=== PATIENT | female | born 1965 | race Caucasian/White ===

== ENCOUNTER → 2019-07-21 | Outpatient (CLI) | payer MEDICARE ==
[~2019-07-21] MED LIST: DOBUTamine DRIP for NUC MED 500 MG in DEXTROSE/WATER 1 250ML.BAG IV ONE
--- NOTE | 2019-07-21 11:51 | ECHOS ---
STRESS ECHOCARDIOGRAM DOBUTAMINE STRESS ECHO DATE OF SERVICE: 07/21/2019 INDICATIONS: Chest pain. MEDICATIONS: Atorvastatin, levothyroxine, sertraline, Advil, Fioricet, albuterol. BASELINE HEART RATE: 77 BASELINE BLOOD PRESSURE: 136/77 MAXIMUM HEART RATE: 142 MAXIMUM BLOOD PRESSURE: 146/69 85% MPHR: 140 100% MPHR: 165 METS: MAXIMUM STAGE REACHED: TOTAL EXERCISE TIME: CLINICAL INFORMATION: Baseline EKG shows sinus rhythm, normal axis, normal intervals. The patient was given intravenous dobutamine as per protocol for 12-1/2 minutes achieving 85% of predicted maximal heart rate without chest pain or diagnostic ST-segment depression. Baseline echo shows normal left ventricular size, wall motion and systolic function. Post dobutamine infusion, there is normal hyperdynamic response of all the segments of myocardium. CONCLUSIONS: 1. Negative stress test by EKG criteria. 2. Negative dobutamine echo. MMODL / IJN: [id number] /
== END | disposition home or self-care (01) ==
LOC: RADNMMAIN 09:28
PROVIDERS: ATTEND Family Medicine
DX: R07.9 Chest pain, unspecified (principal)
CPT/HCPCS: 93351; J1250

== ENCOUNTER → 2019-08-27 | Outpatient (CLI) | payer MEDICARE ==
--- NOTE | 2019-08-31 09:01 | MM ---
Reason for exam: screening (asymptomatic). History: Patient is postmenopausal. Physical Findings: A clinical breast exam by your physician is recommended on an annual basis and results should be correlated with mammographic findings. MG 3D Screening Mammo W/Cad Bilateral CC and MLO view(s) were taken. No prior studies available for comparison. The breast tissue is extremely dense which could obscure a lesion on mammography. There is no discrete abnormality. ASSESSMENT: Negative, BI-RAD 1 RECOMMENDATION: Routine screening mammogram of both breasts in 1 year.
== END | disposition home or self-care (01) ==
LOC: RADMAMWWP 07:01
PROVIDERS: ATTEND Family Medicine
DX: Z12.31 Encounter for screening mammogram for malignant neoplasm of breast (principal)
CPT/HCPCS: 77063; 77067

== ENCOUNTER → 2021-01-26 | Outpatient (CLI) | payer MEDICARE ==
--- NOTE | 2021-01-27 11:35 | MM ---
Reason for exam: screening (asymptomatic). Last mammogram was performed 1 year and 5 months ago. History: Patient is postmenopausal. Physical Findings: A clinical breast exam by your physician is recommended on an annual basis and results should be correlated with mammographic findings. MG 3D Screening Mammo W/Cad Bilateral CC and MLO view(s) were taken. Prior study comparison: August 27, 2019, bilateral MG 3d screening mammo w/cad. The breast tissue is heterogeneously dense. This may lower the sensitivity of mammography. There is no discrete abnormality. ASSESSMENT: Negative, BI-RAD 1 RECOMMENDATION: Routine screening mammogram of both breasts in 1 year.
== END | disposition home or self-care (01) ==
LOC: RADMAMWWP 07:30
PROVIDERS: ATTEND Family Medicine
DX: Z12.31 Encounter for screening mammogram for malignant neoplasm of breast (principal); Z78.0 Asymptomatic menopausal state
CPT/HCPCS: 77063; 77067

== ENCOUNTER → 2021-08-17 | Outpatient (CLI) | payer MEDICARE ==
--- NOTE | 2021-08-18 08:18 | CTL ---
EXAMINATION TYPE: CT Low Dose Lung DATE OF EXAM ORDERED: 08/17/2021 HISTORY: Long-term tobacco use. Lung cancer screening CT DLP: 1.[address] CTDI: 56.70 mGy Automated exposure control for dose reduction was used. SCREENING VISIT: Baseline COMPARISON: None TECHNIQUE: Low dose computed tomography scan was performed through the chest at 1 mm thick sections a nd reconstructed images in multiple planes at 1 mm and [address] DIAGNOSTIC QUALITY: Satisfactory FINDINGS: LUNG NODULES: Present, detailed below: There is 2.7 mm right middle lobe nodule axial image 147. LUNGS: COPD: Severity: Mild Fibrosis: Severity: Mild Right apical Lymph nodes: No greater than 1 cm Other findings: None RIGHT PLEURAL SPACE: Effusion: None Calcification: None Thickening: None Pneumothorax: None LEFT PLEURAL SPACE: Effusion: None Calcification: None Thickening: None Pneumothorax: None HEART: Heart Size: Normal Coronary Calcification: Minimal Pericardial Effusion: Normal OTHER FINDINGS: Upper abdomen: None Bony thorax: [id number] multilevel spurring. Slight underlying scoliotic curvature. Supraclavicular region: None Other: Symmetric prominent but subcentimeter bilateral axillary lymph nodes. IMPRESSION: Mild emphysematous change. No suspicious greater than [address] LUNG RAD AND CT CHEST RECOMMENDATION: Lung-Rad 2 Benign Appearance or Behavior: Continue annual sc reening with LDCT in 12 months. S Modifier (other clinically significant findings): None
== END | disposition home or self-care (01) ==
LOC: RADCTMAIN 16:42
PROVIDERS: ATTEND Family Medicine
DX: Z12.2 Encounter for screening for malignant neoplasm of respiratory organs (principal); J43.9 Emphysema, unspecified; Z87.891 Personal history of nicotine dependence
CPT/HCPCS: 71271

== ENCOUNTER 2021-11-21 10:02 | Inpatient (IN) | payer MEDICARE ==
[2021-11-21] MEDS ORDERED: IBUPROFEN 600 MG TAB PO STA (10:30)
[2021-11-21] MEDS ORDERED: ACETAMINOPHEN TAB 325 MG TAB PO STA (10:30)
[2021-11-21] MEDS ORDERED: ONDANSETRON 4 MG/2 ML VIAL IVP STA (10:30)
[2021-11-21] MEDS ORDERED: SODIUM CHLORIDE 0.9% 1,000 ML IV ONE (10:42)
[2021-11-21] MEDS ORDERED: SODIUM CHLORIDE 0.9% 500 ML 500 ML IV ONE (10:42)
--- NOTE | 2021-11-21 10:42 | ED ---
Fever HPI - General Chief Complaint: Fever Stated Complaint: Fever Time Seen by Provider: 11/21/21 10:10 Source: patient, RN notes reviewed Mode of arrival: ambulatory Limitations: no limitations - History of Present Illness Initial Comments: This a 56-year-old female presents emergency Department chief complaint of fever times one week. Patient states that she's not felt well since last week she did have covid and influenza testing which was negative. 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 Patient was sent in by PCP secondary to fever. Patient states that she's had some nausea no specific cough or cold-like symptoms. Patient states that she said no diarrhea no sick contacts. Patient had on-and-off illnesses the past. Patient denies ear pain sore throat no neck pain or neck stiffness. No urinary symptoms - Related Data Home Medications Medication Instructions Recorded Confirmed Atorvastatin [Lipitor] 20 mg PO DAILY 11/21/21 11/21/21 Ibuprofen/Diphenhydramine HCl 2 cap PO HS 11/21/21 11/21/21 [Advil Pm Liqui-Gels] Levothyroxine Sodium [Synthroid] 50 mcg PO DAILY 11/21/21 11/21/21 Sertraline [Zoloft] 150 mg PO DAILY 11/21/21 11/21/21 Allergies Allergy/AdvReac Type Severity Reaction Status Date / Time codeine AdvReac Intermediate Nausea & Verified 11/21/21 11:37 Vomiting hydrocodone [From Vicodin] AdvReac Intermediate Nausea & Verified 11/21/21 11:37 Vomiting meperidine [From Demerol] AdvReac Intermediate Nausea & Verified 11/21/21 11:37 Vomiting Review of Systems ROS Statement: Those systems with pertinent positive or pertinent negative responses have been documented in the HPI. ROS Other: All systems not noted in ROS Statement are negative. Past Medical History Past Medical History: No Reported History History of Any Multi-Drug Resistant Organisms: None Reported Past Surgical History: Appendectomy, Hernia Repair Additional Past Surgical History / Comment(s): spleenectomy. Past Psychological History: No Psychological Hx Reported Smoking Status: Current some day smoker Past Alcohol Use History: Occasional Past Drug Use History: Marijuana General Exam Limitations: no limitations General appearance: alert, in no apparent distress Head exam: Present: atraumatic, normocephalic, normal inspection Eye exam: Present: normal appearance, PERRL, EOMI. Absent: scleral icterus, conjunctival injection, periorbital swelling ENT exam: Present: normal exam, normal oropharynx, mucous membranes moist, TM's normal bilaterally Neck exam: Present: normal inspection, full ROM. Absent: tenderness, meningismus, lymphadenopathy Respiratory exam: Present: normal lung sounds bilaterally. Absent: respiratory distress, wheezes, rales, rhonchi, stridor Cardiovascular Exam: Present: normal rhythm, tachycardia, normal heart sounds. Absent: systolic murmur, diastolic murmur, rubs, gallop, clicks GI/Abdominal exam: Present: soft, normal bowel sounds. Absent: distended, tenderness, guarding, rebound, rigid Neurological exam: Present: alert, oriented X3 Skin exam: Present: warm, dry, intact, normal color. Absent: rash Course Vital Signs 11/21/21 10:02 Temperature 101.1 F H Pulse Rate 102 H Respiratory 18 Rate Blood Pressure 164/74 O2 Sat by Pulse 99 Oximetry Medical Decision Making - Medical Decision Making 56-year-old present for fever. Patient on a left-sided lobar pneumonia. Patient has significant leukocytosis and history of splenectomy. Patient was started on broad-spectrum antibiotics and will be admitted to the hospital for further monitoring, treatment. - Lab Data Result diagrams: 11/21/21 10:42 11/21/21 10:42 Lab Results 11/21/21 11/21/21 11/21/21 Range/Units 10:42 10:42 10:42 WBC 20.5 H (3.8-10.6) k/uL RBC 3.52 L (3.80-5.40) m/uL Hgb 12.0 (11.4-16.0) gm/dL Hct 35.6 (34.0-46.0) % MCV 101.0 H (80.0-100.0) fL MCH 34.2 (25.0-35.0) pg MCHC 33.8 (31.0-37.0) g/dL RDW 13.2 (11.5-15.5) % Plt Count 316 (150-450) k/uL MPV 8.5 Neutrophils % 86 % Lymphocytes % 10 % Monocytes % 2 % Eosinophils % 1 % Basophils % 0 % Neutrophils # 17.6 H (1.3-7.7) k/uL Lymphocytes # 2.0 (1.0-4.8) k/uL Monocytes # 0.5 (0-1.0) k/uL Eosinophils # 0.2 (0-0.7) k/uL Basophils # 0.1 (0-0.2) k/uL Sodium 128 L (137-145) mmol/L Potassium 3.5 (3.5-5.1) mmol/L Chloride 99 (98-107) mmol/L Carbon Dioxide 18 L (22-30) mmol/L Anion Gap 11 mmol/L BUN 6 L (7-17) mg/dL Creatinine 0.62 (0.52-1.04) mg/dL Est GFR (CKD-EPI)AfAm >90 (>60 ml/min/1.73 sqM) Est GFR (CKD-EPI)NonAf >90 (>60 ml/min/1.73 sqM) Glucose 177 H (74-99) mg/dL Plasma Lactic Acid Robert (0.7-2.0) mmol/L Calcium 8.7 (8.4-10.2) mg/dL Total Bilirubin 0.5 (0.2-1.3) mg/dL AST 39 H (14-36) U/L ALT 46 H (4-34) U/L Alkaline Phosphatase 90 (38-126) U/L Total Protein 6.8 (6.3-8.2) g/dL Albumin 3.6 (3.5-5.0) g/dL Influenza Type A (PCR) Not Detected (Not Detectd) Influenza Type B (PCR) Not Detected (Not Detectd) RSV (PCR) Not Detected (Not Detectd) SARS-CoV-2 (PCR) Not Detected (Not Detectd) 11/21/21 Range/Units 10:42 WBC (3.8-10.6) k/uL RBC (3.80-5.40) m/uL Hgb (11.4-16.0) gm/dL Hct (34.0-46.0) % MCV (80.0-100.0) fL MCH (25.0-35.0) pg MCHC (31.0-37.0) g/dL RDW (11.5-15.5) % Plt Count (150-450) k/uL MPV Neutrophils % % Lymphocytes % % Monocytes % % Eosinophils % % Basophils % % Neutrophils # (1.3-7.7) k/uL Lymphocytes # (1.0-4.8) k/uL Monocytes # (0-1.0) k/uL Eosinophils # (0-0.7) k/uL Basophils # (0-0.2) k/uL Sodium (137-145) mmol/L Potassium (3.5-5.1) mmol/L Chloride (98-107) mmol/L Carbon Dioxide (22-30) mmol/L Anion Gap mmol/L BUN (7-17) mg/dL Creatinine (0.52-1.04) mg/dL Est GFR (CKD-EPI)AfAm (>60 ml/min/1.73 sqM) Est GFR (CKD-EPI)NonAf (>60 ml/min/1.73 sqM) Glucose (74-99) mg/dL Plasma Lactic Acid Robert 1.8 (0.7-2.0) mmol/L Calcium (8.4-10.2) mg/dL Total Bilirubin (0.2-1.3) mg/dL AST (14-36) U/L ALT (4-34) U/L Alkaline Phosphatase (38-126) U/L Total Protein (6.3-8.2) g/dL Albumin (3.5-5.0) g/dL Influenza Type A (PCR) (Not Detectd) Influenza Type B (PCR) (Not Detectd) RSV (PCR) (Not Detectd) SARS-CoV-2 (PCR) (Not Detectd) Disposition Clinical Impression: Pneumonia, History of splenectomy, Leukocytosis Disposition: ADMITTED IP TO THIS HOSP Condition: Fair Referrals: Lion Guzman MD [Primary Care Provider] - 1-2 days
[2021-11-21 10:56] LABS: Basophils # (A) 0.1 k/uL (0-0.2); Basophils % (A) 0 %; Eosinophils # (A) 0.2 k/uL (0-0.7); Eosinophils % (A) 1 %; HCT 35.6 % (34.0-46.0); Lymphocytes % (A) 10 %; MCH 34.2 pg (25.0-35.0); MCHC 33.8 g/dL (31.0-37.0); Mean Platelet Volume 8.5; Monocytes # (A) 0.5 k/uL (0-1.0); Monocytes % (A) 2 %; Neutrophils # (A) 17.6 k/uL (1.3-7.7); Neutrophils % (A) 86 %; Platelet Count 316 k/uL (150-450); RBC 3.52 m/uL (3.80-5.40); RDW 13.2 % (11.5-15.5); WBC 20.5 k/uL (3.8-10.6)
[2021-11-21 11:08] LABS: ALT 46 U/L (4-34); AST 39 U/L (14-36); African American GFR (CKD) >90 (>60 ml/min/1.73 sqM); Albumin 3.6 g/dL (3.5-5.0); Alkaline Phosphatase 90 U/L (38-126); Anion Gap 11 mmol/L; Blood Urea Nitrogen 6 mg/dL (7-17); Calcium 8.7 mg/dL (8.4-10.2); Carbon Dioxide 18 mmol/L (22-30); Chloride 99 mmol/L (98-107); Glucose 177 mg/dL (74-99); Non-African American GFR(CKD) >90 (>60 ml/min/1.73 sqM); Potassium 3.5 mmol/L (3.5-5.1); Sodium 128 mmol/L (137-145); Total Bilirubin 0.5 mg/dL (0.2-1.3); Total Protein 6.8 g/dL (6.3-8.2)
--- NOTE | 2021-11-21 11:26 | XR ---
EXAMINATION TYPE: XR chest 2V DATE OF EXAM: 11/21/2021 COMPARISON: CT dated 08/17/2021 HISTORY: Fever TECHNIQUE: Frontal and lateral views of the chest are obtained. FINDINGS: Left midlung zone thick area of consolidation likely representing pneumonia, please correlate clinica lly. Follow-up to resolution is advised. Grossly unremarkable remainder of the lungs. No sizable pleural effusion or definite pneumothorax. Bi lateral apical pulmonary fibrotic changes. No gross cardiomegaly. Aortic atherosclerotic calcifications. Degenerative changes of the thoracic sp ine. Millimetric right axillary calcifications. IMPRESSION: Suspected left midlung zone pneumonia, please correlate clinically. Follow-up to complete resolution after appropriate treatment in 6-8 weeks is advised. Other incidental findings as described above.
[2021-11-21] MEDS ORDERED: AZITHROMYCIN 500 MG in SODIUM CHLORIDE 0.9% 250 ML IVPB STA (12:34)
[2021-11-21] MEDS ORDERED: PNEUMONIA PROTOCOL UTILIZED 1 EACH MISC PO PRN (12:35)
[2021-11-21] MEDS ORDERED: SODIUM CHLORIDE 0.9% 1,000 ML IV SCH (12:45)
[2021-11-21 12:56] LABS: Appearance,Urine Turbid (Clear); Bacteria,Urine Rare /hpf; Bilirubin,Urine Negative (Negative); Blood,Urine Negative (Negative); Color,Urine Yellow; Glucose,Urine (UA) 1+ (Negative); Ketones,Urine Negative (Negative); Leukocyte Esterase,Urine Negative (Negative); Mucus,Urine Moderate /hpf; Nitrite,Urine Negative (Negative); Protein,Urine 2+ (Negative); RBC,Urine 4 /hpf (0-5); Specific Gravity,Urine 1.021 (1.001-1.035); Squamous Epithelial Cell,Urine 1 /hpf (0-4); Urobilinogen,Urine <2.0 mg/dL (<2.0); WBC,Urine 2 /hpf (0-5)
[2021-11-21] MEDS ORDERED: NALOXONE 0.4 MG/ML 1 ML VIAL IV PRN ×2 (13:21→14:03)
[2021-11-21] MEDS ORDERED: MELATONIN 3 MG TABLET PO PRN (14:03)
[2021-11-21] MEDS ORDERED: NICOTINE GUM (POLACRILEX) 2 MG GUM BUCCAL PRN (14:03)
[2021-11-21] MEDS ORDERED: bisacodyL 5 MG TABLET.DR PO PRN (14:03)
--- NOTE | 2021-11-21 14:03 | P.HPIM ---
History of Present Illness H&P Date: 11/21/21 Chief Complaint: fevers Patient is a 56-year-old female with splenectomy due to prior ITP and tobacco abuse who presented to the ER complaining of fever for 7 days. On arrival to the ER her temperature was 101.1 and pulse was 102. Laboratory analysis showed a white blood cell count of 20.5, sodium 128, carbon dioxide of 18, glucose 177, AST 39, ALT 46. Influenza, RSV, and Covid testing was negative. CXR deomonstrates left midlung pneumonia. Patient seen and examined at bedside. Patient started having fevers 7 days ago. Has been increasing over the last week. Has been taking NSAIDS and increasing liquids. Has been unable to sleep since getting the fever. No shortness of breath or cough. Has not been requiring nebulizer. She reports pain on the left side of her chest with deep inspiration at the midaxil line. + PND. No sore throat, no sick contact. Decreased appetie but drinking well. No problems with urination. Diarrhea X 1 day, + nausea, Vomiting X 2. No Abx since this started. Reports that she does not feel good. Pertinent positives and negatives as discussed in HPI, a complete review of systems was performed and all other systems are negative. General: Ill appearing, mild distress, appears at stated age Derm: warm, dry Head: atraumatic, normocephalic, symmetric Eyes: EOMI, no lid lag, anicteric sclera, pupils equal round reactive to light ENT: Nose and ears atraumatic, no thrush, + pharyngeal erythema Neck: No thyromegaly, no cervical lymphadenopathy, trachea midline, supple Mouth: no lip lesion, mucus membranes dry Cardiovascular: S1S2 reg, no murmur, positive posterior tibial pulse bilateral, no edema, capillary refill less than 2 seconds Lungs: clear to ascultation bilateral, no ronchi, no rales, no wheeze, no accessory muscle use Abdominal: soft, nontender to palpation, no guarding, no appreciable organomegaly, normal bowel sounds Ext: no gross muscle atrophy, muscle strength muscle strength 5 out of 5 in all 4 extremities, no contractures Neuro: CN II-XI grossly intact, light touch intact all 4 extremities, finger to nose within normal limits, Psych: Alert, oriented, appears anxious with pressured speech Assessment/plan: Community-acquired pneumonia with sepsis and an asplenic patient -Continue with Rocephin and Zithromax -Check legionella urine antigen -Sputum culture -IV fluids -Await blood cultures - repeat CXR in 6-8 weeks - patient had a normal low-dose CT in Jul 2021 Chronic bronchitis without exacerbation -As needed bronchodilators -No indication for steroids at this time Hypovolemic hyponatremia -IV fluids -Serial electrolytes -If sodium level worsens consider checking urine osmole, urine sodium, and con sulted nephrology. Tobacco abuse -Cessation -Nicotine replacement The patient is admitted with an anticipated greater than 2 midnight stay for evaluation of community-acquired pneumonia with sepsis. Surrogate decision-maker: CODE STATUS:Full DVT prophylaxis: Lovenox Discussed with: Patient, nursing Anticipated discharge date: in 2-[address]: home A total of 70 minutes was spent on the care of this complex patient more than 50% of the time was spent in counseling and care coordination. Past Medical History Additional Past Medical History / Comment(s): ITP, Chronic bronchitis, chronic pain History of Any Multi-Drug Resistant Organisms: None Reported Past Surgical History: Appendectomy, Hernia Repair Additional Past Surgical History / Comment(s): spleenectomy. Lysis of adhesion, cyst removed from pinky toe Past Psychological History: No Psychological Hx Reported Smoking Status: Current some day smoker (1/2 PPD) Past Alcohol Use History: Occasional Past Drug Use History: Marijuana - Past Family History Mother Family Medical History: Unable to Obtain (adopted) Medications and Allergies Home Medications Medication Instructions Recorded Confirmed Type Atorvastatin [Lipitor] 20 mg PO DAILY 11/21/21 11/21/21 History Ibuprofen/Diphenhydramine HCl 2 cap PO HS 11/21/21 11/21/21 History [Advil Pm Liqui-Gels] Levothyroxine Sodium [Synthroid] 50 mcg PO DAILY 11/21/21 11/21/21 History Sertraline [Zoloft] 150 mg PO DAILY 11/21/21 11/21/21 History Allergies Allergy/AdvReac Type Severity Reaction Status Date / Time codeine AdvReac Intermediate Nausea & Verified 11/21/21 11:37 Vomiting hydrocodone [From Vicodin] AdvReac Intermediate Nausea & Verified 11/21/21 11:37 Vomiting meperidine [From Demerol] AdvReac Intermediate Nausea & Verified 11/21/21 11:37 Vomiting Physical Exam Osteopathic Statement: *. No significant issues noted on an osteopathic structural exam other than those noted in the History and Physical/Consult. Vitals: Vital Signs Temp Pulse Resp BP Pulse Ox 11/21/21 10:02 101.1 F H 102 H 18 164/74 99 Intake and Output 11/20/21 11/21/21 11/21/21 22:59 06:59 14:59 Other: Weight 63.503 kg Results CBC & Chem 7: 11/21/21 10:42 11/21/21 10:42 Labs: Abnormal Lab Results - Last 24 Hours (Table) 11/21/21 11/21/21 11/21/21 Range/Units 10:42 10:42 12:02 WBC 20.5 H (3.8-10.6) k/uL RBC 3.52 L (3.80-5.40) m/uL MCV 101.0 H (80.0-100.0) fL Neutrophils # 17.6 H (1.3-7.7) k/uL Sodium 128 L (137-145) mmol/L Carbon Dioxide 18 L (22-30) mmol/L BUN 6 L (7-17) mg/dL Glucose 177 H (74-99) mg/dL AST 39 H (14-36) U/L ALT 46 H (4-34) U/L Urine Appearance Turbid H (Clear) Urine Protein 2+ H (Negative) Urine Glucose (UA) 1+ H (Negative) Urine Bacteria Rare H (None) /hpf Urine Mucus Moderate H (None) /hpf
[2021-11-21] MEDS ORDERED: ALBUTEROL NEBULIZED 2.5 MG/3 ML INHALATION PRN (14:04)
[2021-11-21] MEDS: ACETAMINOPHEN TAB 325 MG TAB PO PRN (17:29)
[2021-11-21 18:38] LABS: African American GFR (CKD) >90 (>60 ml/min/1.73 sqM); Anion Gap 9 mmol/L; Blood Urea Nitrogen 5 mg/dL (7-17); Calcium 7.8 mg/dL (8.4-10.2); Carbon Dioxide 18 mmol/L (22-30); Chloride 106 mmol/L (98-107); Glucose 169 mg/dL (74-99); Non-African American GFR(CKD) >90 (>60 ml/min/1.73 sqM); Potassium 3.1 mmol/L (3.5-5.1); Sodium 133 mmol/L (137-145)
[2021-11-21] MEDS: IPRATROPIUM-ALBUTEROL 3 ML NEB INHALATION SCH ×2 (18:55→19:26)
[2021-11-21] MEDS ORDERED: POTASSIUM CHLORIDE ER 20 MEQ TAB.ER PO STA (19:56)
[2021-11-21] MEDS: SODIUM CHLORIDE 0.9% 1,000 ML IV SCH (21:08)
[2021-11-22] MEDS: LEVOTHYROXINE 50 MCG TAB PO SCH (06:14)
[2021-11-22 06:29] LABS: HCT 31.9 % (34.0-46.0); HGB 10.7 gm/dL (11.4-16.0); MCH 34.5 pg (25.0-35.0); MCHC 33.5 g/dL (31.0-37.0); MCV 103.3 fL (80.0-100.0); Macrocytosis Slight; Mean Platelet Volume 8.6; Platelet Count 279 k/uL (150-450); RBC 3.09 m/uL (3.80-5.40); RDW 13.7 % (11.5-15.5); WBC 15.7 k/uL (3.8-10.6)
[2021-11-22 06:50] LABS: African American GFR (CKD) >90 (>60 ml/min/1.73 sqM); Anion Gap 8 mmol/L; Blood Urea Nitrogen 5 mg/dL (7-17); Carbon Dioxide 20 mmol/L (22-30); Chloride 105 mmol/L (98-107); Glucose 112 mg/dL (74-99); Magnesium 1.8 mg/dL (1.6-2.3); Non-African American GFR(CKD) >90 (>60 ml/min/1.73 sqM); Potassium 3.9 mmol/L (3.5-5.1); Sodium 133 mmol/L (137-145)
--- NOTE | 2021-11-22 06:59 | XR ---
EXAMINATION TYPE: XR chest 2V DATE OF EXAM: 11/22/2021 COMPARISON: Chest x-ray from one day earlier. HISTORY: Pneumonia and fever TECHNIQUE: Frontal and lateral views of the chest are obtained. FINDINGS: There is slight worsening focal pneumonic consolidation anterior inferior left upper lobe. Stable focal consolidation left upper lobe near aortic knob. Right lung remains clear. The cardiac s ilhouette size remains within normal limits. The osseous structures are intact. IMPRESSION: Slightly more prominent anterior-inferior pneumonic consolidation and stable additional focal pneumonic infiltrate left upper lobe
[2021-11-22] MEDS: IPRATROPIUM-ALBUTEROL 3 ML NEB INHALATION SCH ×4 (07:34→20:08)
[2021-11-22] MEDS: SERTRALINE 100 MG TAB PO SCH (07:54)
[2021-11-22] MEDS: ATORVASTATIN 20 MG TAB PO SCH (07:55)
[2021-11-22] MEDS: ACETAMINOPHEN TAB 325 MG TAB PO PRN (08:04)
[2021-11-22] MEDS ORDERED: AZITHROMYCIN 500 MG in SODIUM CHLORIDE 0.9% 250 ML IVPB SCH (09:00)
[2021-11-22] MEDS: ENOXAPARIN 40 MG/0.4 ML SYRINGE SQ SCH (10:43)
[2021-11-22] MEDS: SODIUM CHLORIDE 0.9% 1,000 ML IV SCH ×2 (11:55→19:54)
--- NOTE | 2021-11-22 16:37 | P.PN ---
Subjective Progress Note Date: 11/22/21 (stefanie charting seen at 1430) Principal diagnosis: fevers Patient is a 56-year-old female with splenectomy due to prior ITP and tobacco abuse who presented to the ER complaining of fever for 7 days. On arrival to the ER her temperature was 101.1 and pulse was 102. Laboratory analysis showed a white blood cell count of 20.5, sodium 128, carbon dioxide of 18, glucose 177, AST 39, ALT 46. Influenza, RSV, and Covid testing was negative. CXR deomonstrates left midlung pneumonia. Patient seen and examined at bedside. She states that she is not having any difficulty with shortness of breath. She is overall feeling much better than yesterday. She did develop some diarrhea today which has been fairly intractable. Denies any nausea or vomiting. No abdominal pain. She did have some blood in her stool. She is having a dry nonproductive cough. General: non toxic, no distress, appears at stated age Derm: warm, dry Head: atraumatic, normocephalic, symmetric Eyes: EOMI, no lid lag, anicteric sclera Mouth: no lip lesion, mucus membranes dry Cardiovascular: S1S2 reg, no murmur, positive posterior tibial pulse bilateral, Lungs: Coarse breath sounds bilaterally with no evidence of wheezing , no accessory muscle use Abdominal: soft, nontender to palpation, no guarding, no appreciable organomegaly Ext: no gross muscle atrophy, no edema, no contractures Neuro: CN II-XI grossly intact, no focal neuro deficits Psych: Alert, oriented, appropriate affect Assessment/plan: Legionella Community-acquired pneumonia with sepsis and an asplenic patient Diarrhea -transition to levaquin -Sputum culture -IV fluids -Await blood cultures - repeat CXR in 6-8 weeks - patient had a normal low-dose CT in Jul 2021 - consult ID - C diff pending but suspect diarrhea is second to legionella Chronic bronchitis without exacerbation -As needed bronchodilators -No indication for steroids at this time Hypovolemic hyponatremia -IV fluids -Serial electrolytes Tobacco abuse -Cessation -Nicotine replacement Additional diagnosis: HLD Hypothyroidism DVT prophylaxis: Lovenox Discussed with: Patient, nursing Anticipated discharge date: in 2-[address]: home A total of 35 minutes was spent on the care of this complex patient more than 50% of the time was spent in counseling and care coordination. Objective - Vital Signs Vital signs: Vital Signs Temp 98.7 F 11/22/21 12:18 Pulse 94 11/22/21 15:31 Resp 18 11/22/21 12:18 BP 114/72 11/22/21 12:18 Pulse Ox 98 11/22/21 12:18 Intake & Output 11/21/21 11/22/21 11/22/21 18:59 06:59 18:59 Intake Total 75 Balance 75 Weight 63.503 kg Intake: Intake, IV Titration 75 Amount Azithromycin 500 mg In 25 Sodium Chloride 0.9% 250 ml @ 250 mls/hr IVPB DAILY [facility] Rx#:[id number] Sodium Chloride 0.9% 1, 50 000 ml @ 130 mls/hr IV . [id number] [facility] Rx#:[id number] Other: Voiding Method Toilet - Labs CBC & Chem 7: 11/22/21 06:03 11/22/21 06:03 Labs: Abnormal Lab Results - Last 24 Hours (Table) 11/21/21 11/21/21 11/22/21 Range/Units 12:02 18:14 06:03 WBC 15.7 H (3.8-10.6) k/uL RBC 3.09 L (3.80-5.40) m/uL Hgb 10.7 L (11.4-16.0) gm/dL Hct 31.9 L (34.0-46.0) % MCV 103.3 H (80.0-100.0) fL Sodium 133 L (137-145) mmol/L Potassium 3.1 L (3.5-5.1) mmol/L Carbon Dioxide 18 L (22-30) mmol/L BUN 5 L (7-17) mg/dL Glucose 169 H (74-99) mg/dL Calcium 7.8 L (8.4-10.2) mg/dL Urine Legionella Ag Positive A (Negative) 11/22/21 Range/Units 06:03 WBC (3.8-10.6) k/uL RBC (3.80-5.40) m/uL Hgb (11.4-16.0) gm/dL Hct (34.0-46.0) % MCV (80.0-100.0) fL Sodium 133 L (137-145) mmol/L Potassium (3.5-5.1) mmol/L Carbon Dioxide 20 L (22-30) mmol/L BUN 5 L (7-17) mg/dL Glucose 112 H (74-99) mg/dL Calcium 8.0 L (8.4-10.2) mg/dL Urine Legionella Ag (Negative) Microbiology - Last 24 Hours (Table) 11/21/21 10:30 Blood Culture - Preliminary Blood No Growth after 24 hours 11/21/21 10:15 Blood Culture - Preliminary Blood No Growth after 24 hours
[2021-11-22] MEDS: CHOLESTYRAMINE (WITH SUGAR) 4 GM PACKET PO SCH (17:14)
[2021-11-22] MEDS: LACTOBACILLUS ACIDOPH & BULGAR 1 EACH PACKET PO SCH ×2 (17:16→19:54)
--- NOTE | 2021-11-22 23:46 | P.CONS ---
History of Present Illness - Reason for Consult Consult date: 11/22/21 Legionella pneumonia Requesting physician: Stephanie Kraus - Chief Complaint Fever and cough x few days - History of Present Illness Patient is a 56-year female with a past medical history significant for splenectomy back in 1973 patient did have a hard top outside and has been used only twice this winter last time was on [employer] Day, patient mention she has not been feeling well since last Saturday, however on Saturday he started having a fever with chills for with the patient starting some Tylenol and Motrin at home on 2 days later he tried having a cough and some left lower chest pain describing to more of a sharp 5-6 out of 10 and no radiation, the patient cough has been moderate intensity however dry in nature patient mention she went to see her physician yesterday who subsequently advised the patient to go to the hospital on arrival to the ER patient did have a fever of 101 F patient was not hypoxic or need for supplemental oxygen patient did have white count of 20,000 with a left shift creatinine was normal liver enzymes are mildly elevated urine was negative patient Covid RSV and influenza testing was negative patient did have a chest x-ray suspected left mid lung zone pneumonia she has been treated with Rocephin and Zithromax urine for Legionella antigen came back positive Zithromax was switched over to Levaquin and infectious disease was consulted for further management of antibiotic therapy patient is currently complaining of diarrhea with multiple loose stools since morning no blood or mucus in stool stool for C. difficile was negative Review of Systems Positive point has been mentioned in the HPI rest of the systems are negative Past Medical History Past Medical History: Hyperlipidemia, Pneumonia, Thyroid Disorder Additional Past Medical History / Comment(s): ITP, Chronic bronchitis, chronic pain History of Any Multi-Drug Resistant Organisms: None Reported Past Surgical History: Appendectomy, Hernia Repair Additional Past Surgical History / Comment(s): spleenectomy. Lysis of adhesion, cyst removed from pinky toe Past Anesthesia/Blood Transfusion Reactions: No Reported Reaction Past Psychological History: No Psychological Hx Reported Smoking Status: Current some day smoker (1/2 PPD) Past Alcohol Use History: Occasional Past Drug Use History: Marijuana - Past Family History Father History Unknown: Yes Additional Family Medical History / Comment(s): Pt was adopted Mother History Unknown: Yes Additional Family Medical History / Comment(s): Pt was adopted. Medications and Allergies Home Medications Medication Instructions Recorded Confirmed Type Atorvastatin [Lipitor] 20 mg PO DAILY 11/21/21 11/21/21 History Ibuprofen/Diphenhydramine HCl 2 cap PO HS 11/21/21 11/21/21 History [Advil Pm Liqui-Gels] Levothyroxine Sodium [Synthroid] 50 mcg PO DAILY 11/21/21 11/21/21 History Sertraline [Zoloft] 150 mg PO DAILY 11/21/21 11/21/21 History Allergies Allergy/AdvReac Type Severity Reaction Status Date / Time codeine AdvReac Intermediate Nausea & Verified 11/21/21 11:37 Vomiting hydrocodone [From Vicodin] AdvReac Intermediate Nausea & Verified 11/21/21 11:37 Vomiting meperidine [From Demerol] AdvReac Intermediate Nausea & Verified 11/21/21 11:37 Vomiting Physical Exam Vitals: Vital Signs Temp Pulse Pulse Pulse Resp BP Pulse Ox 11/22/21 15:31 94 11/22/21 15:20 88 11/22/21 12:18 98.7 F 86 18 114/72 98 11/22/21 11:35 87 11/22/21 11:20 85 11/22/21 07:51 97 11/22/21 07:39 92 94 L 11/22/21 03:59 98.7 F 100 20 117/78 96 11/21/21 20:00 15 11/21/21 19:25 99.4 F 93 20 105/67 98 11/21/21 17:17 99.4 F 11/21/21 17:01 98.8 F 99 15 131/84 99 GENERAL DESCRIPTION: Middle-aged female lying in bed, no distress. No tachypnea or accessory muscle of respiration use. HEENT: Shows Pallor , no scleral icterus. Oral mucous membrane is dry. No pharyngeal erythema or thrush NECK: Trachea central, no thyromegaly. LUNGS: Unlabored breathing. Decreased breath sounds at the base. No wheeze or crackle. HEART: S1, S2, regular rate and rhythm. No loud murmur ABDOMEN: Soft, no tenderness , guarding or rigidity, no organomegaly EXTREMITIES: No edema of feet. SKIN: No rash, no masses palpable. NEUROLOGICAL: The patient is awake, alert, oriented x3, mood and affect normal. Results CBC & Chem 7: 11/22/21 06:03 11/22/21 06:03 Labs: Abnormal Lab Results - Last 24 Hours (Table) 11/21/21 11/21/21 11/22/21 Range/Units 12:02 18:14 06:03 WBC 15.7 H (3.8-10.6) k/uL RBC 3.09 L (3.80-5.40) m/uL Hgb 10.7 L (11.4-16.0) gm/dL Hct 31.9 L (34.0-46.0) % MCV 103.3 H (80.0-100.0) fL Sodium 133 L (137-145) mmol/L Potassium 3.1 L (3.5-5.1) mmol/L Carbon Dioxide 18 L (22-30) mmol/L BUN 5 L (7-17) mg/dL Glucose 169 H (74-99) mg/dL Calcium 7.8 L (8.4-10.2) mg/dL Urine Legionella Ag Positive A (Negative) 11/22/21 Range/Units 06:03 WBC (3.8-10.6) k/uL RBC (3.80-5.40) m/uL Hgb (11.4-16.0) gm/dL Hct (34.0-46.0) % MCV (80.0-100.0) fL Sodium 133 L (137-145) mmol/L Potassium (3.5-5.1) mmol/L Carbon Dioxide 20 L (22-30) mmol/L BUN 5 L (7-17) mg/dL Glucose 112 H (74-99) mg/dL Calcium 8.0 L (8.4-10.2) mg/dL Urine Legionella Ag (Negative) Microbiology - Last 24 Hours (Table) 11/21/21 10:30 Blood Culture - Preliminary Blood No Growth after 24 hours 11/21/21 10:15 Blood Culture - Preliminary Blood No Growth after 24 hours Assessment and Plan (1) Pneumonia Current Visit: Yes Status: Acute Code(s): J18.9 - PNEUMONIA, UNSPECIFIED ORGANISM SNOMED Code(s): 474533779 (2) Sepsis Current Visit: Yes Status: Acute Code(s): A41.9 - SEPSIS, UNSPECIFIED ORGANISM SNOMED Code(s): 51758558 Plan: 1patient presented to hospital with sepsis in this patient who did have fever elevated white count sources left-sided pneumonia secondary to acute Legionella with risk factors could be the outside heart water drop which was used approximately a week prior to symptoms started. 2we will continue the patient on Levaquin 750 mg . daily 3-discontinue Rocephin in view of significant diarrhea 4-we will add Questran for symptomatic relief We will follow on clinical condition and cultures to further adjust medication if needed Thank you for this consultation will follow this patient along with you Time with Patient: Greater than 30
[2021-11-23] MEDS: ACETAMINOPHEN TAB 325 MG TAB PO PRN ×2 (04:40→17:37)
[2021-11-23] MEDS: LEVOTHYROXINE 50 MCG TAB PO SCH (05:46)
[2021-11-23 06:57] LABS: HCT 31.5 % (34.0-46.0); HGB 10.3 gm/dL (11.4-16.0); MCH 33.7 pg (25.0-35.0); MCHC 32.6 g/dL (31.0-37.0); MCV 103.4 fL (80.0-100.0); Macrocytosis Slight; Mean Platelet Volume 8.9; Platelet Count 323 k/uL (150-450); RBC 3.05 m/uL (3.80-5.40); RDW 13.7 % (11.5-15.5); WBC 15.9 k/uL (3.8-10.6)
[2021-11-23] MEDS: IPRATROPIUM-ALBUTEROL 3 ML NEB INHALATION SCH ×4 (08:31→19:39)
[2021-11-23 08:33] LABS: African American GFR (CKD) >90 (>60 ml/min/1.73 sqM); Anion Gap 10 mmol/L; Blood Urea Nitrogen 2 mg/dL (7-17); Calcium 8.3 mg/dL (8.4-10.2); Carbon Dioxide 20 mmol/L (22-30); Chloride 104 mmol/L (98-107); Glucose 133 mg/dL (74-99); Magnesium 1.9 mg/dL (1.6-2.3); Non-African American GFR(CKD) >90 (>60 ml/min/1.73 sqM); Potassium 3.8 mmol/L (3.5-5.1); Sodium 134 mmol/L (137-145)
[2021-11-23] MEDS: ATORVASTATIN 20 MG TAB PO SCH (09:25)
[2021-11-23] MEDS: ENOXAPARIN 40 MG/0.4 ML SYRINGE SQ SCH (09:25)
[2021-11-23] MEDS: LEVOFLOXACIN 750 MG TAB PO SCH (09:26)
[2021-11-23] MEDS: SERTRALINE 100 MG TAB PO SCH (09:26)
[2021-11-23] MEDS: CHOLESTYRAMINE (WITH SUGAR) 4 GM PACKET PO SCH ×2 (09:26→17:31)
[2021-11-23] MEDS: LACTOBACILLUS ACIDOPH & BULGAR 1 EACH PACKET PO SCH ×3 (09:27→22:36)
[2021-11-23 09:37] LABS: C Reactive Protein 34.1 mg/dL (<1.0)
[2021-11-23] MEDS: ONDANSETRON 4 MG/2 ML VIAL IVP PRN (13:20)
[2021-11-23] MEDS: SODIUM CHLORIDE 0.9% 1,000 ML IV SCH ×2 (13:36→15:23)
--- NOTE | 2021-11-23 16:03 | P.PN ---
Subjective Progress Note Date: 11/23/21 (delayed charting seen at 1030) Principal diagnosis: fevers Patient is a 56-year-old female with splenectomy due to prior ITP and tobacco abuse who presented to the ER complaining of fever for 7 days. On arrival to the ER her temperature was 101.1 and pulse was 102. Laboratory analysis showed a white blood cell count of 20.5, sodium 128, carbon dioxide of 18, glucose 177, AST 39, ALT 46. Influenza, RSV, and Covid testing was negative. CXR demonstrates left midlung pneumonia. She did develop some diarrhea. Her legionella urine antigen was positive and ID was consulted. MCIR was checked and patient will require both pneumonoccal vaccine, HIB and meningococcal vaccine. Patient seen and examined at bedside. Feeling better today, no diarrhea, breathing well, energy increased. General: non toxic, no distress, appears at stated age Derm: warm, dry Head: atraumatic, normocephalic, symmetric Eyes: EOMI, no lid lag, anicteric sclera Mouth: no lip lesion, mucus membranes dry Cardiovascular: S1S2 reg, no murmur, positive posterior tibial pulse bilateral, Lungs: Coarse breath sounds bilaterally with no evidence of wheezing , no accessory muscle use Abdominal: soft, nontender to palpation, no guarding, no appreciable organomegaly Ext: no gross muscle atrophy, no edema, no contractures Neuro: CN II-XI grossly intact, no focal neuro deficits Psych: Alert, oriented, appropriate affect Assessment/plan: Legionella Community-acquired pneumonia with sepsis and an asplenic patient Diarrhea -transition to levaquin -Sputum culture -IV fluids -Await blood cultures - repeat CXR in 6-8 weeks - patient had a normal low-dose CT in Jul 2021 - ID recs appreciated - C diff pending but suspect diarrhea is second to legionella Chronic bronchitis without exacerbation -As needed bronchodilators -No indication for steroids at this time Hypovolemic hyponatremia -IV fluids -Serial electrolytes Tobacco abuse -Cessation -Nicotine replacement Additional diagnosis: HLD Hypothyroidism DVT prophylaxis: Lovenox Discussed with: Patient, nursing Anticipated discharge date: in 1-[address]: home A total of 35 minutes was spent on the care of this complex patient more than 50% of the time was spent in counseling and care coordination. Objective - Vital Signs Vital signs: Vital Signs Temp 98.8 F 11/23/21 12:45 Pulse 87 11/23/21 12:45 Resp 14 11/23/21 12:45 BP 125/70 11/23/21 12:45 Pulse Ox 96 11/23/21 12:45 Intake & Output 11/22/21 11/23/21 11/23/21 18:59 06:59 18:59 Intake Total 900 240 Balance 900 240 Intake: Intake, IV Titration 900 Amount Sodium Chloride 0.9% 1, 900 000 ml @ 75 mls/hr IV . [id number] [facility] Rx#:[id number] Oral 240 Other: Voiding Method Toilet Toilet - Labs CBC & Chem 7: 11/23/21 06:33 11/23/21 06:33 Labs: Abnormal Lab Results - Last 24 Hours (Table) 11/23/21 11/23/21 11/23/21 Range/Units 06:33 06:33 06:33 WBC 15.9 H (3.8-10.6) k/uL RBC 3.05 L (3.80-5.40) m/uL Hgb 10.3 L (11.4-16.0) gm/dL Hct 31.5 L (34.0-46.0) % MCV 103.4 H (80.0-100.0) fL Sodium 134 L (137-145) mmol/L Carbon Dioxide 20 L (22-30) mmol/L BUN 2 L (7-17) mg/dL Creatinine 0.47 L (0.52-1.04) mg/dL Glucose 133 H (74-99) mg/dL Calcium 8.3 L (8.4-10.2) mg/dL C-Reactive Protein 34.1 H (<1.0) mg/dL Procalcitonin 0.21 H (0.02-0.09) ng/mL Microbiology - Last 24 Hours (Table) 11/21/21 10:30 Blood Culture - Preliminary Blood No Growth after 48 hours 11/21/21 10:15 Blood Culture - Preliminary Blood No Growth after 48 hours
--- NOTE | 2021-11-23 22:35 | P.PN ---
Subjective Progress Note Date: 11/23/21 Principal diagnosis: Legionella pneumonia and postsplenectomy Patient is a 56-year-old female with a past medical history significant for splenectomy presenting to the hospital with fever left-sided chest pain and cough and has been diagnosed with Legionella pneumonia. On today's evaluation that is 11/23/2021, the patient denies having any fever or chills, the patient is breathing more comfortably, left-sided chest pain has resolved minimal cough but no sputum production no abdominal pain and diarrhea has decreased in frequency Objective - Vital Signs Vital signs: Vital Signs Temp 98.8 F 11/23/21 12:45 Pulse 87 11/23/21 12:45 Resp 14 11/23/21 12:45 BP 125/70 11/23/21 12:45 Pulse Ox 96 11/23/21 12:45 Intake & Output 11/22/21 11/23/21 11/23/21 18:59 06:59 18:59 Intake Total 900 240 Balance 900 240 Intake: Intake, IV Titration 900 Amount Sodium Chloride 0.9% 1, 900 000 ml @ 75 mls/hr IV . [id number] [facility] Rx#:[id number] Oral 240 Other: Voiding Method Toilet Toilet - Exam GENERAL DESCRIPTION: A middle-age female lying in bed in no distress RESPIRATORY SYSTEM: Unlabored breathing , decreased breath sounds at bases HEART: S1 S2 regular rate and rhythm , ABDOMEN: Soft , no tenderness EXTREMITIES: No edema feet - Labs CBC & Chem 7: 11/23/21 06:33 11/23/21 06:33 Labs: Abnormal Lab Results - Last 24 Hours (Table) 11/21/21 11/23/21 11/23/21 Range/Units 12:02 06:33 06:33 WBC 15.9 H (3.8-10.6) k/uL RBC 3.05 L (3.80-5.40) m/uL Hgb 10.3 L (11.4-16.0) gm/dL Hct 31.5 L (34.0-46.0) % MCV 103.4 H (80.0-100.0) fL Sodium (137-145) mmol/L Carbon Dioxide (22-30) mmol/L BUN (7-17) mg/dL Creatinine (0.52-1.04) mg/dL Glucose (74-99) mg/dL Calcium (8.4-10.2) mg/dL C-Reactive Protein (<1.0) mg/dL Procalcitonin 0.21 H (0.02-0.09) ng/mL Urine Legionella Ag Positive A (Negative) 11/23/21 Range/Units 06:33 WBC (3.8-10.6) k/uL RBC (3.80-5.40) m/uL Hgb (11.4-16.0) gm/dL Hct (34.0-46.0) % MCV (80.0-100.0) fL Sodium 134 L (137-145) mmol/L Carbon Dioxide 20 L (22-30) mmol/L BUN 2 L (7-17) mg/dL Creatinine 0.47 L (0.52-1.04) mg/dL Glucose 133 H (74-99) mg/dL Calcium 8.3 L (8.4-10.2) mg/dL C-Reactive Protein 34.1 H (<1.0) mg/dL Procalcitonin (0.02-0.09) ng/mL Urine Legionella Ag (Negative) Microbiology - Last 24 Hours (Table) 11/21/21 10:30 Blood Culture - Preliminary Blood No Growth after 48 hours 11/21/21 10:15 Blood Culture - Preliminary Blood No Growth after 48 hours Assessment and Plan (1) Pneumonia Current Visit: Yes Status: Acute Code(s): J18.9 - PNEUMONIA, UNSPECIFIED ORGANISM SNOMED Code(s): 809353776 (2) Sepsis Current Visit: Yes Status: Acute Code(s): A41.9 - SEPSIS, UNSPECIFIED ORGANISM SNOMED Code(s): 44817795 Plan: 1patient presented to hospital with sepsis in this patient who did have fever elevated white count sources left-sided pneumonia secondary to acute Legionella with risk factors could be the outside heart water drop which was used approximately a week prior to symptoms started. 2patient will continue with Levaquin 750 mg . daily to finish a 3 week course of therapy 3Continue with Questran for symptomatic relief of her diarrhea. 4as no clear evidence that the patient has received postsplenectomy vaccination will recommend vaccination against pneumococcus Haemophilus influenzae and meningococcus this was discussed with the admitting team
[2021-11-24] MEDS: ACETAMINOPHEN TAB 325 MG TAB PO PRN (02:34)
[2021-11-24] MEDS: ONDANSETRON 4 MG/2 ML VIAL IVP PRN (02:34)
[2021-11-24 06:19] LABS: HCT 30.5 % (34.0-46.0); HGB 10.1 gm/dL (11.4-16.0); MCH 34.6 pg (25.0-35.0); MCV 104.8 fL (80.0-100.0); Macrocytosis Moderate; Mean Platelet Volume 9.1; Platelet Count 359 k/uL (150-450); RBC 2.91 m/uL (3.80-5.40); RDW 14.5 % (11.5-15.5)
[2021-11-24] MEDS: LEVOTHYROXINE 50 MCG TAB PO SCH (06:36)
[2021-11-24 06:43] LABS: African American GFR (CKD) >90 (>60 ml/min/1.73 sqM); Anion Gap 7 mmol/L; Blood Urea Nitrogen 3 mg/dL (7-17); Calcium 8.4 mg/dL (8.4-10.2); Carbon Dioxide 23 mmol/L (22-30); Chloride 105 mmol/L (98-107); Glucose 123 mg/dL (74-99); Magnesium 1.8 mg/dL (1.6-2.3); Non-African American GFR(CKD) >90 (>60 ml/min/1.73 sqM); Potassium 3.9 mmol/L (3.5-5.1); Sodium 135 mmol/L (137-145)
[2021-11-24 07:52] VITALS: BP 134/78; PULSE 77; RESP 14; TEMP 98
[2021-11-24] MEDS ORDERED: HAEMOPH B POLY CONJ-TET TOX/PF 10 MCG/0.5 ML VIAL IM ONE (08:13)
[2021-11-24] MEDS ORDERED: MENING VAC A,C,Y,W-135 DIP/PF 4 MCG/0.5 ML VIAL IM ONE (08:13)
[2021-11-24] MEDS ORDERED: PREVNAR 13 IM ONE (08:30)
[2021-11-24] MEDS: IPRATROPIUM-ALBUTEROL 3 ML NEB INHALATION SCH ×2 (09:24→11:57)
[2021-11-24] MEDS: LEVOFLOXACIN 750 MG TAB PO SCH (10:48)
[2021-11-24] MEDS: LACTOBACILLUS ACIDOPH & BULGAR 1 EACH PACKET PO SCH (10:48)
[2021-11-24] MEDS: ATORVASTATIN 20 MG TAB PO SCH (10:48)
[2021-11-24] MEDS: ENOXAPARIN 40 MG/0.4 ML SYRINGE SQ SCH (10:49)
[2021-11-24] MEDS: SERTRALINE 100 MG TAB PO SCH (10:52)
[2021-11-24] MEDS: CHOLESTYRAMINE (WITH SUGAR) 4 GM PACKET PO SCH (10:53)
--- NOTE | 2021-11-24 14:17 | P.DS ---
Providers Date of admission: 11/21/21 13:21 Expected date of discharge: 11/24/21 Attending physician: Kenny Diggs MD Consults: 11/22/21 16:10 Consult Physician Routine Consulting Provider: Mohit Baptiste Consult Reason/Comments: legionella pna, asplenia Do you want consulting provider notified?: Yes Primary care physician: Lion Guzman Hospital Course: Discharge Diagnosis: Legionella Community-acquired pneumonia with sepsis and an asplenic patient Diarrhea Chronic bronchitis without exacerbation Hypovolemic hyponatremia Tobacco abuse HLD Hypothyroidism Hospital Course: Patient is a 56-year-old female with splenectomy due to prior ITP and tobacco abuse who presented to the ER complaining of fever for 7 days. On arrival to the ER her temperature was 101.1 and pulse was 102. Laboratory analysis showed a white blood cell count of 20.5, sodium 128, carbon dioxide of 18, glucose 177, AST 39, ALT 46. Influenza, RSV, and Covid testing was negative. CXR demonstrates left midlung pneumonia. She did develop some diarrhea. Her legionella urine antigen was positive and ID was consulted. MCIR was checked and patient will require both pneumonoccal vaccine, HIB and meningococcal vaccine. She was given HIB and PNA vaccine priro to discharge. She will complete a total of 21 days of levauqin. Follow-up: Dr. Guzman 11/27, Dr. Baptiste 12/11/. Patient given info for the health department to complete the rest of the required vaccines.Repeat CBC and CMP in 10 days. Probiotics while on antibiotics. Patient seen and examined at bedside. Feeling better, eating a drinking well, no chest pain. Gave her and her verbal instructions for discharge, all questions answered. Vital signs reviewed and stable. General: non toxic, no distress, appears at stated age Derm: warm, dry Head: atraumatic, normocephalic, symmetric Eyes: EOMI, no lid lag, anicteric sclera Mouth: no lip lesion, mucus membranes moist Cardiovascular: S1S2 reg, no murmur, positive posterior tibial pulse bilateral, Lungs: CTA bilateral, no rhonchi, no rales , no accessory muscle use Abdominal: soft, nontender to palpation, no guarding, no appreciable organomegaly Ext: no gross muscle atrophy, no edema, no contractures Neuro: CN II-XI grossly intact, no focal neuro deficits Psych: Alert, oriented, appropriate affect A total of 42 minutes of time were spent preparing this complex discharge summary . Patient Condition at Discharge: Fair Plan - Discharge Summary Discharge Rx Participant: No New Discharge Prescriptions: New Lactobacillus Acidophilus [Acidophilus] 1 each PO AC-TID #60 tablet Levofloxacin [Levaquin] 750 mg PO DAILY #19 tab Continue Sertraline [Zoloft] 150 mg PO DAILY Ibuprofen/Diphenhydramine HCl [Advil Pm Liqui-Gels] 2 cap PO HS Levothyroxine Sodium [Synthroid] 50 mcg PO DAILY Atorvastatin [Lipitor] 20 mg PO DAILY Discharge Medication List Atorvastatin [Lipitor] 20 mg PO DAILY 11/21/21 [History] Ibuprofen/Diphenhydramine HCl [Advil Pm Liqui-Gels] 2 cap PO HS 11/21/21 [History] Levothyroxine Sodium [Synthroid] 50 mcg PO DAILY 11/21/21 [History] Sertraline [Zoloft] 150 mg PO DAILY 11/21/21 [History] Lactobacillus Acidophilus [Acidophilus] 1 each PO AC-TID #60 tablet 11/24/21 [Rx] Levofloxacin [Levaquin] 750 mg PO DAILY #19 tab 11/24/21 [Rx] Follow up Appointment(s)/Referral(s): Lion Guzman MD [Primary Care Provider] - 11/27/21 12:45 pm Mohit Baptiste MD [STAFF PHYSICIAN] - 12/11/21 1:00 pm Ambulatory/Diagnostic Orders: Complete Blood Count w/diff [LAB.AMB] Time Frame: 10 Days, Location: None Selected Comprehensive Metabolic Panel [LAB.AMB] Time Frame: 10 Days, Location: None Selected Patient Instructions/Handouts: Levofloxacin (By mouth), Haemophilus B Conjugate Vaccine (By injection), Probiotic (By mouth), Meningococcal Polysaccharide Vaccine, Diphtheria Conjugate (By injection), Legionnaires Disease (DC), Bacteri al Pneumonia (DC) Discharge Disposition: HOME SELF-CARE
--- NOTE | 2021-11-24 14:48 | P.PN ---
Subjective Progress Note Date: 11/24/21 Principal diagnosis: Legionella pneumonia and postsplenectomy Patient is a 56-year-old female with a past medical history significant for splenectomy presenting to the hospital with fever left-sided chest pain and cough and has been diagnosed with Legionella pneumonia. On today's evaluation that is 11/24/2021, the patient remains to be afebrile, the patient is breathing comfortably on room air, left-sided chest pain has resolved , the patient cough is decreased intensity is mostly dry in nature denies any chest pain no nausea no abdominal pain and diarrhea has slowed down Objective - Vital Signs Vital signs: Vital Signs Temp 98 F 11/24/21 07:50 Pulse 77 11/24/21 07:55 Resp 14 11/24/21 07:55 BP 134/78 11/24/21 07:50 Pulse Ox 96 11/24/21 08:00 Intake & Output 11/23/21 11/24/21 11/24/21 18:59 06:59 18:59 Intake Total 1190 900 Balance 1190 900 Intake: Intake, IV Titration 950 900 Amount Sodium Chloride 0.9% 1, 900 900 000 ml @ 75 mls/hr IV . [id number] [facility] Rx#:[id number] cefTRIAXone 2 gm In 50 Sodium Chloride 0.9% 50 ml @ 100 mls/hr IVPB Q24HR [facility] Rx#:[id number] Oral 240 Other: Voiding Method Toilet Toilet Toilet - Exam GENERAL DESCRIPTION: A middle-age female lying in bed in no distress RESPIRATORY SYSTEM: Unlabored breathing , decreased breath sounds at bases HEART: S1 S2 regular rate and rhythm , ABDOMEN: Soft , no tenderness EXTREMITIES: No edema feet - Labs CBC & Chem 7: 11/24/21 05:46 11/24/21 05:46 Labs: Abnormal Lab Results - Last 24 Hours (Table) 11/24/21 11/24/21 Range/Units 05:46 05:46 WBC 16.0 H (3.8-10.6) k/uL RBC 2.91 L (3.80-5.40) m/uL Hgb 10.1 L (11.4-16.0) gm/dL Hct 30.5 L (34.0-46.0) % MCV 104.8 H (80.0-100.0) fL Sodium 135 L (137-145) mmol/L BUN 3 L (7-17) mg/dL Glucose 123 H (74-99) mg/dL Microbiology - Last 24 Hours (Table) 11/21/21 10:30 Blood Culture - Preliminary Blood No Growth after 48 hours 11/21/21 10:15 Blood Culture - Preliminary Blood No Growth after 48 hours Assessment and Plan (1) Pneumonia Status: Acute Code(s): J18.9 - PNEUMONIA, UNSPECIFIED ORGANISM SNOMED Code(s): 508343606 (2) Sepsis Status: Acute Code(s): A41.9 - SEPSIS, UNSPECIFIED ORGANISM SNOMED Code(s): 65312756 Plan: 1patient presented to hospital with sepsis in this patient who did have fever elevated white count sources left-sided pneumonia secondary to acute Legionella with risk factors could be the outside heart water drop which was used approximately a week prior to symptoms started. 2patient seemed to have clinical improvement and will finish therapy with Levaquin 750 mg daily, total duration is 3 weeks and close outpatient follow-up 3Continue with Questran for symptomatic relief of her diarrhea. 4as no clear evidence that the patient has received postsplenectomy vaccination will recommend vaccination against pneumococcus Haemophilus influenzae and meningococcus
== END 2021-11-24 13:09 | disposition home or self-care (01) | DRG 871 ==
LOC: EC 10:02 → 5NMEDONC 13:21
PROVIDERS: ADMIT Internal Medicine; ATTEND Internal Medicine
DX: A41.9 Sepsis, unspecified organism (principal); A48.1 Legionnaires' disease; D69.3 Immune thrombocytopenic purpura; E87.1 Hypo-osmolality and hyponatremia; R19.7 Diarrhea, unspecified; F17.210 Nicotine dependence, cigarettes, uncomplicated; J42 Unspecified chronic bronchitis; Z20.822 Contact with and (suspected) exposure to COVID-19; E86.1 Hypovolemia; E78.5 Hyperlipidemia, unspecified; E03.9 Hypothyroidism, unspecified; G89.29 Other chronic pain; Z90.81 Acquired absence of spleen; Z88.5 Allergy status to narcotic agent; Z79.899 Other long term (current) drug therapy; Z79.890 Hormone replacement therapy; Z86.2 Personal history of diseases of the blood and blood-forming organs and certain disorders involving the immune mechanism; Z88.8 Allergy status to other drugs, medicaments and biological substances; Z71.6 Tobacco abuse counseling; Z87.19 Personal history of other diseases of the digestive system
CPT/HCPCS: 36415; 71046; 80048; 80053; 81001; 83605; 83735; 84145; 85025; 85027; 86140; 87040; 87324; 87449; 87636; 90648; 94640; 94760; 96361; 96365; 96366; 96367; 96375; 99284

== ENCOUNTER → 2021-11-27 | Outpatient (CLI) | payer MEDICARE ==
[2021-11-27 18:12] LABS: HCT 33.7 % (37.2-46.3); HGB 11.4 g/dL (12.0-15.0); MCH 34.2 pg (27.0-32.0); MCHC 33.8 g/dL (32.0-37.0); MCV 101.2 fL (80.0-97.0); Mean Platelet Volume 11.9 fL (9.5-12.2); Platelet Count 625 X 10*3/uL (140-440); RBC 3.33 X 10*6/uL (4.10-5.20); RDW 15.2 % (11.5-14.5); WBC 9.81 X 10*3/uL (4.50-10.00)
[2021-11-27 18:25] LABS: African American GFR (CKD) 117.3 (60.0-200.0); Albumin 3.7 g/dL (3.8-4.9); Albumin/Globulin Ratio 1.32 (1.60-3.17); Anion Gap 14.5 mmol/L (10.00-18.00); Calcium 9.5 mg/dL (8.7-10.3); Carbon Dioxide 20.5 mmol/L (20.0-27.5); Globulin 2.8 g/dL (1.6-3.3); Non-African American GFR(CKD) 101.2 (60.0-200.0); Potassium 4.6 mmol/L (3.5-5.5); Total Bilirubin 0.2 mg/dL (0.30-1.20); Total Protein 6.5 g/dL (6.2-8.2)
[2021-11-27 19:49] LABS: Basophils # (M) 0 X 10*3/uL (0.00-0.10); Eosinophils # (M) 0.29 X 10*3/uL (0.04-0.35); Lymphocytes # (M) 2.75 X 10*3/uL (0.90-5.00); Metamyelocytes % 2 % (0-0); Monocytes # (M) 0.59 X 10*3/uL (0.20-1.00); Myelocytes % 1 % (0-0); Neutrophils # (M) 5.89 X 10*3/uL (2.00-8.90); Neutrophils % (M) 60 %; RBC Morphology NORMAL
== END | disposition home or self-care (01) ==
LOC: LABWHC1 11:20
PROVIDERS: ATTEND Internal Medicine
DX: J18.9 Pneumonia, unspecified organism (principal); E87.1 Hypo-osmolality and hyponatremia
CPT/HCPCS: 36415; 80053; 85025

== ENCOUNTER → 2022-06-18 | Outpatient (CLI) | payer MEDICARE ==
--- NOTE | 2022-06-19 18:52 | MM ---
Reason for Exam: Screening (asymptomatic). Last mammogram was performed 1 year(s) and 4 month(s) ago. Patient History: Menarche at age 14. First Full-Term at age 18. Left ovary removed at age 29. Right ovary removed at age 29. Hysterectomy at age 29. Postmenopausal. Unspecified Hormone for 2 years from age 29 until age 31. Risk Values: Tori 5 year model risk: 0.8%. NCI Lifetime model risk: 5.2%. Prior Study Comparison: 08/27/2019 Bilateral Screening Mammogram, [facility]. 01/26/2021 Bilateral Screening Mammogram, [facility]. Tissue Density: The breast tissue is heterogeneously dense. This may lower the sensitivity of mammography. Findings: Analyzed By CAD. There is no suspicious group of microcalcifications or new suspicious mass in either breast. Overall Assessment: Negative, BI-RAD 1 Management: Screening Mammogram of both breasts in 1 year. 1. Patient should continue monthly self breast exams. 2. A clinical breast exam by your physician is recommended on an annual basis. 3. This exam should not preclude additional follow-up of suspicious palpable abnormalities. Electronically signed and approved by: Quinton Gotti M.D. Radiologist
== END | disposition home or self-care (01) ==
LOC: RADMAMWWP 16:41
PROVIDERS: ATTEND Family Medicine
DX: Z12.31 Encounter for screening mammogram for malignant neoplasm of breast (principal); Z78.0 Asymptomatic menopausal state
CPT/HCPCS: 77063; 77067

== ENCOUNTER → 2022-07-24 | Outpatient (CLI) | payer MEDICARE ==
--- NOTE | 2022-07-24 11:08 | CT ---
EXAMINATION TYPE: CT abdomen pelvis wo con DATE OF EXAM: 07/24/2022 HISTORY: Urinary tract infection. Abdominal pain. CT DLP: 725.0 mGycm. Automated Exposure Control for Dose Reduction was Utilized. TECHNIQUE: CT scan of the abdomen and pelvis is performed without oral or IV contrast. COMPARISON: NONE FINDINGS: Within the limitations of a non-contrast study, the following observations are made. LUNG BASES: Scattered small micronodules in the periphery of the left lower lobe all measuring under 5 mm in size. Findings new from prior low-dose lung screening CT. Nonemergent follow-up diagnostic ch est CT advised to further evaluate for possible additional new nodules. LIVER/GB: Gallbladder has distended margins. No biliary dilatation. PANCREAS: No significant abnormality is seen. SPLEEN: Spleen not seen and suspected surgically or traumatically absent ADRENALS: No significant abnormality is seen. KIDNEYS: Central 4 mm calcification left kidney favored vascular in etiology axial image 33. No hydro nephrosis noted bilaterally. Urinary bladder poorly distended without intraluminal calculus. BOWEL: Suboptimal evaluation without enteric contrast. Low-lying cecum into the right pelvis. No susp icious small or large bowel dilatation. Small sized hiatal hernia. GENITAL ORGANS: Uterus surgically absent. Vascular calcification along the draining remnant ovarian v eins incidentally noted. Ovaries likely surgically absent. LYMPH NODES: No greater than 1cm abdominal or pelvic lymph nodes are appreciated. OSSEOUS STRUCTURES: Levoconvex scoliotic curvature centered at L2-L3 level. OTHER: Mild calcified plaque of the aorta extends into branch vessels. IMPRESSION: No hydronephrosis is seen bilaterally. No acute findings are evident. Follow-up nonemerge nt diagnostic chest CT advised.
[2022-07-24 11:23] LABS: Basophils # (A) 0.1 k/uL (0-0.2); Basophils % (A) 0 %; Eosinophils # (A) 0.2 k/uL (0-0.7); Eosinophils % (A) 1 %; HCT 44.1 % (34.0-46.0); HGB 15.1 gm/dL (11.4-16.0); Lymphocytes % (A) 28 %; MCH 35.4 pg (25.0-35.0); MCHC 34.3 g/dL (31.0-37.0); MCV 103.3 fL (80.0-100.0); Macrocytosis Slight; Mean Platelet Volume 7.8; Monocytes # (A) 0.8 k/uL (0-1.0); Monocytes % (A) 5 %; Neutrophils # (A) 9.1 k/uL (1.3-7.7); Neutrophils % (A) 63 %; Platelet Count 361 k/uL (150-450); RBC 4.27 m/uL (3.80-5.40); RDW 13.3 % (11.5-15.5); WBC 14.3 k/uL (3.8-10.6)
[2022-07-24 11:44] LABS: ALT 18 U/L (4-34); AST 21 U/L (14-36); African American GFR (CKD) >90 (>60 ml/min/1.73 sqM); Albumin 4.9 g/dL (3.5-5.0); Albumin/Globulin Ratio 1.8; Alkaline Phosphatase 79 U/L (38-126); Anion Gap 10 mmol/L; Blood Urea Nitrogen 11 mg/dL (7-17); Calcium 9.4 mg/dL (8.4-10.2); Carbon Dioxide 24 mmol/L (22-30); Chloride 101 mmol/L (98-107); Globulin 2.7 g/dL; Glucose 125 mg/dL (74-99); Non-African American GFR(CKD) >90 (>60 ml/min/1.73 sqM); Potassium 4.1 mmol/L (3.5-5.1); Sodium 135 mmol/L (137-145); Total Bilirubin 0.7 mg/dL (0.2-1.3); Total Protein 7.6 g/dL (6.3-8.2)
== END | disposition home or self-care (01) ==
LOC: RADCTMAIN 10:32
PROVIDERS: ATTEND Family Medicine
DX: N39.0 Urinary tract infection, site not specified (principal)
CPT/HCPCS: 74176; 80053; 85025

== ENCOUNTER → 2022-09-19 | Outpatient (CLI) | payer MEDICARE ==
--- NOTE | 2022-09-19 11:41 | CT ---
EXAMINATION TYPE: CT abdomen pelvis wo con DATE OF EXAM: 09/19/2022 COMPARISON: 07/24/2022 INDICATION: Right sided flank pain. DLP: 729 mGycm, Automated exposure control for dose reduction was used. CONTRAST: 0 mL of Isovue 300. Study performed without Oral Contrast TECHNIQUE: Axial images were obtained from above the diaphragm to the pubic rami in the axial plane a t 5 mm thick sections. Reconstructed images are reviewed on the computer in the coronal plane. FINDINGS: Limited CT sections are obtained the lung bases. The lung bases are clear. CT ABDOMEN: Liver: Normal Spleen: Not identified. Pancreas: Normal Adrenal glands: The adrenal glands are normal. Gallbladder: Normal Kidneys: No masses are evident. No hydronephrosis is present. No cysts are present. There is ar no nobstructing superior pole left renal stone measuring 0.2 cm. There may be a punctate calcification w ithin the distal left hemipelvis ureter above the ureterovesical junction.. Series 3 image 99. Differ ential diagnosis includes a phlebolith or vascular calcification. Aorta: Vascular calcification is within the aorta. Inferior vena cava: Normal. CT PELVIS: Loops of bowel within the abdomen and pelvis are normal. Fecal debris is within the ascending and tr ansverse colon. Study is without contrast limiting evaluation. Appendix: Not identified. No dilated tubular structure or inflammatory changes are evident. Urinary bladder: Normal. Genitourinary structures: Uterus and ovaries are not identified. Osseous structures: No suspicious lytic or sclerotic lesions. IMPRESSIONS: 1. Nonobstructing ureteral stone on the left hemipelvis left ureter may be present. A phlebolith or vascular calcification could be considered within the differential. 2. Nonvisualization of the spleen
== END | disposition home or self-care (01) ==
LOC: RADCTMAIN 11:09
PROVIDERS: ATTEND Family Medicine
DX: N20.1 Calculus of ureter (principal)
CPT/HCPCS: 74176

== ENCOUNTER → 2022-09-19 | Outpatient (CLI) | payer MEDICARE ==
[2022-09-19 12:35] LABS: Basophils # (A) 0.1 k/uL (0-0.2); Basophils % (A) 1 %; Eosinophils # (A) 0.2 k/uL (0-0.7); Eosinophils % (A) 2 %; HCT 44.3 % (34.0-46.0); HGB 14.6 gm/dL (11.4-16.0); Lymphocytes # (A) 4.3 k/uL (1.0-4.8); Lymphocytes % (A) 37 %; MCH 33.5 pg (25.0-35.0); MCHC 32.8 g/dL (31.0-37.0); MCV 102.1 fL (80.0-100.0); Macrocytosis Slight; Mean Platelet Volume 7.4; Monocytes # (A) 0.6 k/uL (0-1.0); Monocytes % (A) 5 %; Neutrophils # (A) 6.5 k/uL (1.3-7.7); Neutrophils % (A) 55 %; Platelet Count 351 k/uL (150-450); RBC 4.34 m/uL (3.80-5.40); RDW 13.6 % (11.5-15.5); WBC 11.8 k/uL (3.8-10.6)
[2022-09-19 12:53] LABS: ALT 19 U/L (4-34); AST 18 U/L (14-36); African American GFR (CKD) >90 (>60 ml/min/1.73 sqM); Albumin 4.6 g/dL (3.5-5.0); Albumin/Globulin Ratio 1.5; Alkaline Phosphatase 64 U/L (38-126); Amylase 74 U/L (30-110); Anion Gap 9 mmol/L; Blood Urea Nitrogen 11 mg/dL (7-17); Calcium 9.4 mg/dL (8.4-10.2); Carbon Dioxide 22 mmol/L (22-30); Chloride 105 mmol/L (98-107); Glucose 96 mg/dL (74-99); Lipase 70 U/L (23-300); Non-African American GFR(CKD) >90 (>60 ml/min/1.73 sqM); Potassium 4.5 mmol/L (3.5-5.1); Sodium 136 mmol/L (137-145); Total Bilirubin 0.6 mg/dL (0.2-1.3); Total Protein 7.6 g/dL (6.3-8.2)
== END | disposition home or self-care (01) ==
LOC: LABWHC1 11:39
PROVIDERS: ATTEND Nurse Practitioner Adult Health
DX: R10.9 Unspecified abdominal pain (principal)
CPT/HCPCS: 36415; 80053; 82150; 83690; 85025

== ENCOUNTER → 2023-07-29 | Outpatient (CLI) | payer MEDICARE ==
--- NOTE | 2023-07-29 10:06 | CT ---
EXAMINATION TYPE: CT chest wo con DATE OF EXAM: 07/29/2023 COMPARISON: 08/17/2021 HISTORY: Abnormal lung hurtado, lung nodule CT DLP: 418 mGycm, Automated exposure control for dose reduction was used. CONTRAST: Performed injected with mL of . TECHNIQUE: Axial images were obtained at 5 mm thick sections. Reconstructed images are reviewed on [employer] computer in the coronal plane. FINDINGS: Portion of the thyroid visualized is normal. No suspicious lung nodules or focal infiltrates are present. There is a punctate 1 mm nodule in the p eriphery of the right mid lung. Series 4 image 21 present previously and stable. Small density within the anterolateral right midlung is present, series 4 image 31 appears to be present previously. Ther e is a 0.8 cm curvilinear density at the right anterior sulcus, series 4 image 50. This may be an int erval change. No enlarged mediastinal or hilar adenopathy is evident. The ascending aorta diameter at the level o f the main pulmonary artery is 3.3 cm. The main pulmonary artery diameter at the bifurcation is 2.2 cm. Minimal coronary artery calcifications present. Limited CT sections are obtained through the upper abdomen. There is a nonobstructing punctate renal stone mid left kidney. IMPRESSION: 1. New curvilinear density right anterior lung sulcus. Follow-up CT chest 6 months recommended.
== END | disposition home or self-care (01) ==
LOC: RADCTMAIN 08:27
PROVIDERS: ATTEND Family Medicine
DX: J98.4 Other disorders of lung (principal); R91.8 Other nonspecific abnormal finding of lung field
CPT/HCPCS: 71250

== ENCOUNTER → 2023-08-29 | Outpatient (CLI) | payer MEDICARE ==
--- NOTE | 2023-09-02 07:28 | MM ---
Reason for Exam: Screening (asymptomatic). Last mammogram was performed 1 year(s) and 3 month(s) ago. Patient History: Menarche at age 14. First Full-Term at age 18. Left ovary removed at age 29. Right ovary removed at age 29. Hysterectomy at age 29. Postmenopausal. Unspecified Hormone for 2 years from age 29 until age 31. Risk Values: Tori 5 year model risk: 0.9%. NCI Lifetime model risk: 5.0%. Prior Study Comparison: 08/27/2019 Bilateral Screening Mammogram, [facility]. 01/26/2021 Bilateral Screening Mammogram, [facility]. 06/18/2022 Bilateral MG 3D screening mammo w/cad, [facility]. Tissue Density: The breast tissue is extremely dense which could obscure a lesion on mammography. Findings: Analyzed By CAD. Pattern appears symmetrical and stable. No significant interval change is evident. No suspicious groups of microcalcifications, spiculated or lobular masses, architectural distortion or other secondary signs of malignancy are mammographically apparent. Overall Assessment: Benign, BI-RAD 2 Management: Screening Mammogram of both breasts in 1 year. A negative mammogram report should not preclude additional follow up of suspicious palpable abnormalities. Patient should continue monthly self breast exam. A clinical breast exam by your physician is recommended on an annual basis and results should be correlated with mammographic findings. Electronically signed and approved by: Marcos Briseno D.O. Radiologis
== END | disposition home or self-care (01) ==
LOC: RADMAMWWP 15:23
PROVIDERS: ATTEND Family Medicine
DX: Z12.31 Encounter for screening mammogram for malignant neoplasm of breast (principal); Z78.0 Asymptomatic menopausal state
CPT/HCPCS: 77063; 77067

== ENCOUNTER → 2024-01-30 | Outpatient (CLI) | payer MEDICARE ==
--- NOTE | 2024-01-30 17:34 | CT ---
EXAMINATION TYPE: CT chest wo con DATE OF EXAM: 01/30/2024 COMPARISON: 07/29/2023, 08/17/2021 HISTORY: 58-year-old female R9 1.1, solitary pulmonary nodule. Follow up on left lower lobe nodule TECHNIQUE: Contiguous axial scanning of the chest without IV contrast. Coronal/sagittal reconstructio ns performed. CT DLP: 192.5mGycm. Automatic exposure control utilized for a dose reduction. FINDINGS: The heart is normal size with small 7 mm anterior pericardial effusion. Aorta normal caliber with mild atherosclerotic arch calcifications in the metatarsotarsal branching a natomy. No proximal adenopathy by CT size criteria. Mild emphysematous change. Mild biapical pleural-parenchymal scarring. No consolidation or pleural ef fusion. 6 mm basilar right middle lobe pulmonary nodule, axial image 54 remains unchanged or smaller suggesti ng a benign etiology 7 mm basilar left lower lobe pulmonary nodule, axial image 50 remains unchanged back to 2020. 4 mm anterior right midlung pulmonary nodule, axial image 41 is unchanged. Visualized upper abdomen shows no gross abnormality. Bones: Mild anterior endplate spondylosis and degenerative disc disease lower thoracic spine. No osse ous destructive process. IMPRESSION: 1. COPD with mild emphysema. 2. A few pulmonary nodules measuring up to 7 mm are either stable or smaller. Findings suggest a cristine gn etiology. Return to annual lung cancer screening CT
== END | disposition home or self-care (01) ==
LOC: RADCTMAIN 16:58
PROVIDERS: ATTEND Family Medicine
DX: J44.9 Chronic obstructive pulmonary disease, unspecified (principal); J43.9 Emphysema, unspecified; R91.8 Other nonspecific abnormal finding of lung field
CPT/HCPCS: 71250